=== PATIENT | male | born 1995 | race African-American/Black ===

== ENCOUNTER → 2024-12-20 | Emergency (ER) | payer MEDICAID ==
[~2024-12-20] VITALS: Ht 167.6 cm; Wt 63.2 kg
--- NOTE | 2024-12-20 10:25 | ERN ---
ED Note History of Present Illness Stated Complaint: URINARY FREQUENCY Chief Complaint: Urinary Frequency Time Seen by MD: 10:20 Dictation: PATIENT IS A 29-YEAR-OLD MALE COMING IN TODAY WITH COMPLAINTS OF BURNING TO BOTH OF HIS LEGS HE HAS HAD FOR SEVERAL WEEKS. NO FEVER NO CHILLS NO NAUSEA VOMITING. NO FLANK PAIN NO CHANGE IN URINATION. 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 NO LOCAL PRIMARY CARE DOCTOR. 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 Allergies: Coded Allergies: No Known Drug Allergies (Unverified Allergy, Unknown, 12/20/24) Past Medical History Past Medical History: No Pertinent History Surgical History: None RN Note Reviewed/Agreed w/PFSH: Yes Review of System Dictation CONSTITUTIONAL: NEGATIVE EXCEPT FOR HPI HEAD/FACE: NEGATIVE EXCEPT FOR HPI EENT: NEGATIVE EXCEPT FOR HPI RESPIRATORY: NEGATIVE EXCEPT FOR HPI GASTROINTESTINAL/ABDOMINAL: NEGATIVE EXCEPT FOR HPI GENITOURINARY: NEGATIVE EXCEPT FOR HPI MUSCULOSKELETAL: NEGATIVE EXCEPT FOR HPI MUSCLE PAIN INTEGUMENTARY: NEGATIVE EXCEPT FOR HPI NEUROLOGICAL/PSYCH: NEGATIVE EXCEPT FOR HPI HEMATOLOGIC/LYMPHATIC: NEGATIVE EXCEPT FOR HPI ALL SYSTEMS NEGATIVE, EXCEPT NOTED ABOVE. 13 POINT REVIEW OF SYSTEMS ASSESSED AND ALL NEGATIVE EXCEPT FOR ABOVE. Initial Vital Sign VS Vital Signs Date Time Temp Pulse Resp B/P (MAP) Pulse Ox O2 Delivery O2 Flow Rate FiO2 12/20/24 10:20 97.3 68 16 117/75 97 Room Air 0 12/20/24 10:24 21 Physical Exam Dictation VITAL SIGNS REVIEWED GENERAL APPEARANCE: ALERT, ORIENTED X 3, NO ACUTE DISTRESS, WELL DEVELOPED, NOURISHED. HEAD AND FACE: NON-TRAUMATIC. EYES: PERRL, PINK CONJUNCTIVAS, EYELID NO TRAUMA, ANTERIOR CHAMBER WITH ARCUS SENILIS. EARS: PINNAS INTACT AND NO SIGNS OF TRAUMA OR ERYTHEMA EAR CANALS CLEAR AND NO DISCHARGE TM NO ERYTHEMA NOSE: NO DISCHARGE, NO BLEEDING. OROPHARYNX: MOUTH NORMAL, TONGUE PINK, PHARYNX CLEAR,NO ERYTHEMA, TONSILS NO EXUDATES, NO ABSCESSES NOTED, MUCOUS MEMBRANE MOIST NECK: SUPPLE, NON-TENDER, NO THYROMEGALY, NO MASSES, NO JVD, NO BRUITS BREAST:DEFERRED CHEST:NO TENDERNESS, NO CREPITUS, NO PARADOXICAL MOVEMENT, NO RETRACTIONS LUNGS:CLEAR, WELL-VENTILATED, SYMMETRIC, NO RALES, NO WHEEZING, NO RHONCHI, NO STRIDOR, GOOD BREATH SOUNDS BILATERALLY HEART: REGULAR RATE, REGULAR RHYTHM, NO MURMUR, NO GALLOPS VASCULAR: NO PERIPHERAL EDEMA, ABDOMEN: SOFT, POSITIVE BOWEL SOUNDS, NONDISTENDED, NO GUARDING, NONTENDER, NO REBOUND, NO MASSES NO HEPATOMEGALY, NO SPLENOMEGALY, NO VELEZ'S SIGN, NO HERNIAS. RECTAL: DEFERRED GENITAL: DEFERRED NEUROLOGICAL: NORMAL SPEECH, MOTOR FUNCTION INTACT, SENSORY FUNCTION INTACT MUSCULOSKELETAL: NECK NONTENDER, FULL RANGE OF MOTION, BACK NONTENDER, FULL RANGE OF MOTION, EXTREMITIES: NONTENDER, FULL RANGE OF MOTION SKIN: COLOR PINK, DRY, NO TURGOR, NO RASH, NO LACERATIONS, NO ABRASIONS, NO CONTUSIONS. LYMPHATIC: DEFERRED Results (Laboratory/Radiology) Laboratory/Radiology Laboratory Tests Test 12/20/24 10:27 12/20/24 10:33 Urine Color LIGHT-YELLOW (YELLOW) Urine Appearance CLEAR (CLEAR) Urine pH 8.0 (5.0-8.0) Urine Specific [place] 1.022 (1.001-1.031) Urine Protein NEGATIVE mg/dL (NEGATIVE) Urine Glucose (UA) NEGATIVE mg/dL (NEGATIVE) Urine Ketones NEGATIVE mg/dL (NEGATIVE) Urine Occult Blood NEGATIVE (NEGATIVE) Urine Nitrate NEGATIVE (NEGATIVE) Urine Bilirubin NEGATIVE mg/dL (NEGATIVE) Urine Urobilinogen 0.2 mg/dL (0.2-1.0) Urine Leukocyte Esterase NEGATIVE Abimael/uL White Blood Count 5.4 K/uL (4.8-10.8) Red Blood Count 5.35 MIL/uL (4.50-6.20) Hemoglobin 15.3 g/dL (14.0-18.0) Hematocrit 45.2 % (42-54) Mean Corpuscular Volume 84.5 fL (79-99) Mean Corpuscular Hemoglobin 28.6 pg (27.0-33.0) Mean Corpuscular Hemoglobin Concent 33.8 g/dL (32.0-36.0) Red Cell Distribution Width 13.1 % (11.0-15.5) Platelet Count 240 K/uL (130-400) Mean Platelet Volume 9.7 fL (7.5-10.5) Immature Granulocyte % (Auto) 0.2 % (0-1) Neutrophils (%) (Auto) 42.9 % (40.0-77.0) Lymphocytes (%) (Auto) 44.8 % (21.0-51.0) Monocytes (%) (Auto) 10.2 % (3.0-13.0) Eosinophils (%) (Auto) 1.5 % (0.0-8.0) Basophils (%) (Auto) 0.4 % (0.0-5.0) Neutrophils # (Auto) 2.3 K/uL (1.8-7.7) Lymphocytes # (Auto) 2.4 K/uL (1.0-4.8) Monocytes # (Auto) 0.6 K/uL (0.1-1.0) Eosinophils # (Auto) 0.08 K/uL (0.00-0.70) Basophils # (Auto) 0.02 K/uL (0.00-0.20) Absolute Immature Granulocyte (auto 0.01 K/uL (0-1) Nucleated Red Blood Cells 0.0 % (0.0-0.19) Sodium Level 136 mmol/L (136-145) Potassium Level 4.1 mmol/L (3.5-5.1) Chloride Level 103 mmol/L (101-111) Carbon Dioxide Level 31 mmol/L (21-32) Blood Urea Nitrogen 11 mg/dL (7-18) Creatinine 1.1 mg/dL (0.5-1.3) Glomerular Filtration Rate Calc 93 mL/min (>90) Random Glucose 118 mg/dL (70-105) H Total Calcium 9.2 mg/dL (8.5-10.1) Magnesium Level 1.90 mg/dL (1.80-2.40) Total Creatine Kinase 300 U/L (21-232) H Labs Reviewed?: Yes ED Course ED Course Orders Procedure Category Date Status Time Cbc With Differential LAB 12/20/24 Complete 10:23 Magnesium LAB 12/20/24 Complete 10:23 Basic Metabolic Panel LAB 12/20/24 Complete 10:23 Urinalysis Profile LAB 12/20/24 Complete 10:27 Creatine Kinase, Total LAB 12/20/24 Complete 10:35 Vital Signs Date Time Temp Pulse Resp B/P (MAP) Pulse Ox O2 Delivery O2 Flow Rate FiO2 12/20/24 10:24 97.3 68 16 117/75 97 Room Air* 0 21 6/14/25 10:20 97.3 68 16 117/75 97 Room Air 0 1100/PATIENT HEMODYNAMICALLY STABLE. LABS UNREMARKABLE EXCEPT MILDLY ELEVATED GLUCOSE AND CK LEVEL. NO RHABDO AT THIS TIME. PATIENT WILL BE STRONGLY ENCOURAGED INCREASE HIS ELECTROLYTE FLUIDS INTAKE AND FOLLOW UP WITH HIS DOCTOR IN [place] WHEN HE GETS HOME. Medical Decision Making [facility] MEDICAL DECISION-MAKING BASIC LABS TO INCLUDE CHEMISTRY CK AND URINALYSIS DUE TO COMPLAIN OF HAVING DARK URINE. LABS ARE UNREMARKABLE EXCEPT FOR MILDLY ELEVATED GLUCOSE AND CK LEVELS. PATIENT DISCHARGED HOME ON ENCOURAGED IN CREASE ELECTROLYTE FLUID INTAKE AND SEE HIS DOCTOR IN [place] DX & DISP Disposition: Discharge Departure Impression: Primary Impression: Hyperglycemia Additional Impression: Elevated CK-MB level Condition: Stable Additional Instructions: FOLLOW-UP WITH PRIMARY CARE PROVIDER IN 1 TO 2 DAYS. TAKE MEDICATIONS DIRECTED HERE IN THE EMERGENCY ROOM. OKAY TO CONTINUE HOME MEDICATIONS UNLESS OTHERWISE DISCUSSED DURING YOUR VISIT IN THE EMERGENCY ROOM TODAY. RETURN TO YOUR NEAREST EMERGENCY ROOM IF SYMPTOMS WORSEN OR IF THERE IS NO IMPROVEMENT. CALL 911 IF YOU NEED IMMEDIATE ASSISTANCE. TAKE TYLENOL OR MOTRIN [id number] NEEDED AND IF NO CONTRAINDICATIONS ARE PRESENT. INCREASE ORAL HYDRATION. A WOUND CULTURE OR URINE CULTURE WAS ORDERED HERE IN THE EMERGENCY ROOM DEPARTMENT PLEASE FOLLOW-UP WITH PRIMARY CARE PROVIDER AND ADVISE THEM TO GET REPEAT PORTS FROM OUR FACILITY. IF YOU HAD ANY GUILLAUME WRAP/SPLINTS THAT WERE APPLIED HERE, PLEASE DO NOT REMOVE THEM UNTIL YOU SEE YOUR PRIMARY CARE OR SPECIALTY. MEDICALLY CLEARED FOR WORK AND TRAVEL. TN WORKING OUTSIDE, SUGGEST SIPS OF GATORADE OR POWERADE EVERY 20 MINUTES. SEE YOUR DOCTOR SOON POSSIBLE Time of Disposition: 11:04 I have reviewed the case, and I agree with, Diagnosis and Plan SHAUN RAINES NP Dec 20, 2024 10:25
[2024-12-20 10:41] LABS: BASOPHILS # (AUTO) 0.02 K/uL (0.00-0.20); BASOPHILS % (AUTO) 0.4 % (0.0-5.0); EOSINOPHILS # (AUTO) 0.08 K/uL (0.00-0.70); EOSINOPHILS % (AUTO) 1.5 % (0.0-8.0); HEMATOCRIT 45.2 % (42-54); IMMATURE GRANULOCYTE ABSOLUTE 0.01 K/uL (0-1); LYMPHOCYTES # (AUTO) 2.4 K/uL (1.0-4.8); LYMPHOCYTES % (AUTO) 44.8 % (21.0-51.0); MEAN CORPUSCULAR HEMOGLOBIN 28.6 pg (27.0-33.0); MEAN CORPUSCULAR HGB CONC 33.8 g/dL (32.0-36.0); MEAN CORPUSCULAR VOLUME 84.5 fL (79-99); MONOCYTES # (AUTO) 0.6 K/uL (0.1-1.0); MONOCYTES % (AUTO) 10.2 % (3.0-13.0); NEUTROPHILS # (AUTO) 2.3 K/uL (1.8-7.7); NEUTROPHILS % (AUTO) 42.9 % (40.0-77.0); PLATELET COUNT (AUTO) 240 K/uL (130-400); RED BLOOD CELL COUNT(AUTO) 5.35 MIL/uL (4.50-6.20); RED CELL DISTRIBUTION WIDTH 13.1 % (11.0-15.5); WHITE BLOOD COUNT (AUTO) 5.4 K/uL (4.8-10.8)
[2024-12-20 10:42] LABS: APPEARANCE,URINE CLEAR (CLEAR); BILIRUBIN,URINE NEGATIVE (NEGATIVE); COLOR,URINE LIGHT-YELLOW (YELLOW); GLUCOSE, URINE (UA) NEGATIVE (NEGATIVE); KETONES,URINE NEGATIVE (NEGATIVE); LEUKOCYTE ESTERASE ,URINE NEGATIVE Leu/uL (NEGATIVE); NITRATE,URINE NEGATIVE (NEGATIVE); OCCULT BLOOD,URINE NEGATIVE (NEGATIVE); PROTEIN,URINE NEGATIVE (NEGATIVE); UROBILINOGEN,URINE 0.2 mg/dL (0.2-1.0)
[2024-12-20 10:52] LABS: ADD UA MICROSCOPIC NO
[2024-12-20 10:57] LABS: CREATININE 1.1 mg/dL (0.5-1.3); MAGNESIUM 1.9 mg/dL (1.80-2.40); POTASSIUM 4.1 mmol/L (3.5-5.1)
[2024-12-20 11:28] VITALS: BP 115/76; PULSE 85; RESP 17; TEMP 98.3; O2SAT 95
--- NOTE | 2024-12-20 11:31 | NUR ---
DC PATIENT WAS DC'D BY SHAUN RAINES TODAY I EXPLAINED TO PATIENT TO FOLLOW UP WITH PCP, AND PROVIDED INFO BASED ON DIAGNOSIS I ANSWERED ANY FURTHER QUESTIONS FROM PATIENT PATIENT AMBULATED OUT OF ED, NO COMPLICATIONS
== END ==
LOC: EDH 10:16
DX: R73.9 Hyperglycemia, unspecified (principal); R74.8 Abnormal levels of other serum enzymes
CPT/HCPCS: 36415; 80048; 81003; 82550; 83735; 85025; 99283